=== PATIENT | male | born 1995 | race Asian ===

== ENCOUNTER 2019-11-24 15:27 | Emergency (ER) | payer OTHER ==
[~2019-11-24] VITALS: Ht 162.6 cm; Wt 81.8 kg
[2019-11-24 15:29] VITALS: BP 141/93
== END 2019-11-24 16:23 | disposition home or self-care (01) ==
LOC: EMS 15:27
DX: Z03.818 Encounter for observation for suspected exposure to other biological agents ruled out (principal)
CPT/HCPCS: 99283; U0003